=== PATIENT | male | born 1970 | race Caucasian/White ===

== ENCOUNTER 2020-08-23 18:27 | Emergency (ER) | payer OTHER ==
[~2020-08-23] VITALS: Ht 172.7 cm; Wt 82.1 kg
[~2020-08-23 18:27] MED LIST: MOTRIN800 MG PO
[2020-08-23] MEDS ORDERED: ATORVASTATIN CA10 MG PO (19:17)
[2020-08-23] MEDS ORDERED: NORFLEX100MG PO (20:18)
[2020-08-23] MEDS ORDERED: DICLOFENAC SODI75 MG PO (20:18)
== END 2020-08-23 20:22 | disposition home or self-care (01) ==
LOC: ER 18:27
DX: M54.5 Low back pain (principal)

== ENCOUNTER 2021-03-05 13:48 | Emergency (ER) | payer OTHER ==
[~2021-03-05] VITALS: Ht 172.7 cm; Wt 81.6 kg
[~2021-03-05 13:48] MED LIST changes: +ATORVASTATIN CA10 MG PO; +DICLOFENAC SODI75 MG PO; +NORFLEX100MG PO
[2021-03-05] MEDS ORDERED: ZANAFLEX4 M1 PO (14:00)
[2021-03-05] MEDS ORDERED: CAMBIA50 MG PO (14:00)
== END 2021-03-05 15:24 | disposition home or self-care (01) ==
LOC: ER 13:48
DX: M54.50 Low back pain, unspecified (principal)

== ENCOUNTER 2022-03-13 09:02 | Outpatient (CLI) | payer OTHER ==
[~2022-03-13 09:02] MED LIST changes: +CAMBIA50 MG PO; +ZANAFLEX4 M1 PO
== END 2022-03-13 09:15 | disposition home or self-care (01) ==
LOC: RAD 09:02
PROVIDERS: ATTEND Internal Medicine Hematology & Oncology
DX: D68.9 Coagulation defect, unspecified (principal); E78.2 Mixed hyperlipidemia

== ENCOUNTER 2022-09-06 07:39 | Emergency (ER) | payer OTHER ==
[~2022-09-06] VITALS: Ht 172.7 cm; Wt 83.5 kg
== END 2022-09-06 15:50 | disposition home or self-care (01) ==
LOC: ER 07:39
DX: N50.812 Left testicular pain (principal)